=== PATIENT | female | born 1965 | race Caucasian/White ===

== ENCOUNTER 2016-10-07 19:45 | Emergency (ER) | payer BC ==
[~2016-10-07] VITALS: Ht 160 cm; Wt 95.3 kg
== END 2016-10-07 21:45 | disposition short-term general hospital (02) ==
LOC: ER 19:45
DX: K81.9 Cholecystitis, unspecified (principal)
CPT/HCPCS: J1885

== ENCOUNTER 2016-10-09 09:06 | Day surgery (SDC) | payer BC ==
[~2016-10-09] VITALS: Ht 160 cm; Wt 96.6 kg
== END 2016-10-09 20:50 | disposition short-term general hospital (02) ==
LOC: SURGOP 09:06
PROC: 0FT44ZZ Resection of Gallbladder, Percutaneous Endoscopic Approach (ICD-10-PCS; principal; 2016-10-09)
DX: K80.12 Calculus of gallbladder with acute and chronic cholecystitis without obstruction (principal); E66.9 Obesity, unspecified; Z68.32 Body mass index [BMI] 32.0-32.9, adult; Z83.3 Family history of diabetes mellitus; Z82.49 Family history of ischemic heart disease and other diseases of the circulatory system; Z80.8 Family history of malignant neoplasm of other organs or systems; Z79.899 Other long term (current) drug therapy; Z90.89 Acquired absence of other organs
CPT/HCPCS: J0690; J0780; J1100; J1885; J2250; J2405; J2765; J3010

== ENCOUNTER → 2016-10-16 | Outpatient (CLI) | payer BC | END | disposition short-term general hospital (02) | LOC: CLSURG 08:19 | DX: Z48.815 Encounter for surgical aftercare following surgery on the digestive system (principal); Z90.49 Acquired absence of other specified parts of digestive tract; K80.12 Calculus of gallbladder with acute and chronic cholecystitis without obstruction ==